=== PATIENT | female | born 1965 | race Caucasian/White ===

== ENCOUNTER 2016-05-06 19:47 | Emergency (ER) | payer OTHER ==
[~2016-05-06] VITALS: Ht 160 cm; Wt 67.8 kg
[~2016-05-06 19:47] MED LIST: GEMFIBROZIL600 MG PO; PREMARIN0.3 MG PO; ZESTRIL,PRINIVI20 MG PO
[2016-05-06] MEDS ORDERED: MOTRIN800 MG PO (21:37)
[2016-05-06] MEDS ORDERED: FLEXERIL10 MG PO (21:37)
[2016-05-06 21:48] VITALS: BP 116/75
== END 2016-05-06 21:49 | disposition home or self-care (01) ==
LOC: EME 19:47
DX: S30.0XXA Contusion of lower back and pelvis, initial encounter (principal); W01.0XXA Fall on same level from slipping, tripping and stumbling without subsequent striking against object, initial encounter; E11.9 Type 2 diabetes mellitus without complications; I10 Essential (primary) hypertension
CPT/HCPCS: 72100; 72220; 99281; 99284

== ENCOUNTER → 2017-06-27 | Outpatient (CLI) | payer OTHER ==
[~2017-06-27] VITALS: Ht 160 cm; Wt 72.1 kg
[~2017-06-27] MED LIST changes: +ALDACTONE50 MG PO; +AMBIEN10 MG PO; +ATORVASTATIN CA10 MG PO; +DAILY MULTIPLE1 EACH PO; +FENOFIBRATE160 M1 PO; +FLEXERIL10 MG PO; +GLIMEPIRIDE1 MG PO; +GLUMETZA500 M1 PO; +LO-DOSE ASPIRIN81 M1 PO; +MOTRIN800 MG PO; +ONGLYZA5 MG PO; +PRILOSEC20 MG PO; -ZESTRIL,PRINIVI20 MG PO; +ZESTRIL20 MG PO
== END | disposition home or self-care (01) ==
LOC: AMB 07:20
PROVIDERS: Internal Medicine
PROC: 0DJD8ZZ Inspection of Lower Intestinal Tract, Via Natural or Artificial Opening Endoscopic (ICD-10-PCS; principal; 2017-06-27)
DX: Z12.11 Encounter for screening for malignant neoplasm of colon (principal); K64.8 Other hemorrhoids; K64.4 Residual hemorrhoidal skin tags; E11.9 Type 2 diabetes mellitus without complications; Z79.84 Long term (current) use of oral hypoglycemic drugs; E78.1 Pure hyperglyceridemia; I10 Essential (primary) hypertension; Z80.0 Family history of malignant neoplasm of digestive organs; Z82.3 Family history of stroke; Z83.3 Family history of diabetes mellitus; Z83.49 Family history of other endocrine, nutritional and metabolic diseases; Z79.82 Long term (current) use of aspirin; Z88.5 Allergy status to narcotic agent
CPT/HCPCS: 82948; 93005; J7643